=== PATIENT | male | born 1935 | race Caucasian/White ===

== ENCOUNTER 2018-05-04 04:43 | Inpatient (IN) ==
[2018-05-04] MEDS ORDERED: Naloxone 0.4 MG/ML INJ IVP PRN (07:09)
[2018-05-04 07:38] LABS: Basophils % 0.3 %; Eosinophils # 0.2 K/mcL (0.0-0.6); Eosinophils % 1.5 %; Hematocrit 41.1 % (37.5-50.1); Hemoglobin 13.4 g/dL (12.9-16.9); Immature Granulocytes % 1.1 % (0-4); Lymphocytes # 1.5 K/mcL (0.6-4.6); Lymphocytes % 11.2 %; Mean Corpuscular HGB Conc 32.6 g/dL (31.6-35.5); Mean Corpuscular Volume 91.9 fL (83.0-100.0); Mean Platelet Volume 8.3 fL (9.4-12.4); Monocytes % 7.1 %; Neutrophils # 10.7 K/mcL (1.6-8.9); Platelet Count 306 K/mcL (140-400); Red Blood Count 4.47 M/mcL (4.19-5.50); Red Cell Distribution Width 12.7 % (11.5-14.5); Segmented Neutrophils % 78.8 %
[2018-05-04 07:58] LABS: Alanine Aminotransferase 20 Units/L (7-52); Albumin 4.2 g/dL (3.5-5.7); Albumin/Globulin Ratio 1.6 (1.1-2.2); Alkaline Phosphatase 59 Units/L (34-104); Aspartate Amino Transferase 28 Units/L (13-39); BUN/Creatinine Ratio 18 (6-26); Bilirubin,Total 0.6 mg/dL (0.3-1.0); Blood Urea Nitrogen 16 mg/dL (8-23); Calcium 9.5 mg/dL (8.6-10.3); Carbon Dioxide 24 mEq/L (23-29); Chloride 102 mEq/L (98-107); Globulin 2.6 g/dL (2.4-3.5); Glucose 112 mg/dL (70-105); Osmolality,Calculated 282 (280-300); Phosphorous 3.3 mg/dL (2.7-4.5); Potassium 4.3 mEq/L (3.5-5.1); Sodium 135 mEq/L (136-145); Total Protein 6.8 g/dL (6.4-8.9); eGFR For Non-African Americans > 60 (> 60)
--- NOTE | 2018-05-04 08:18 | Internal Med History&Physical ---
Date of Encounter: 05/04/18 Time of Encounter: 07:16 Internal Medicine - H&P: HPI Chief complaint: Hematuria Admitted From: Home Plans for Post Hospital Care: Home History of present illness: Mr. Terrazas is a 83 year old male with history of type 2 diabetes and recent TURP procedure on 04/[address] [facility] presented to the [facility] emergency department with hematuria. Patient reported that he had a TURP procedure performed on 04/19 and was discharged home with a Chow catheter which was removed 6 days later with the urology team. He was found to have a urinary tract infection and was started on Bactrim which was later changed after urine cultures resulted on 04/27 but he cannot recall the new antibiotic but does report that he felt that prescription the day before admission. He reports that he was doing well until Thursday 2 days before admission he fell after his feet got tangled in his pants and hit his right shoulder and right hip on the floor, subsequently he developed back pain and blood in his urine. At first his urine was blood-tinged however on the day of admission he saw smith blood in his urine along with clots so he decided to go to [facility] emergency department for further evaluation. He cannot recall alleviating or aggravating factors. He does however report that he continued to have frequency and difficulty initiating his urine once he started to notice blood mixed with his urine. While at [facility] ED Chow was inserted and CBI was initiated and urology was consulted and was recommended for him to be transferred to [facility] for further evaluation and management CT abdomen and pelvis performed at [facility] was negative for any retroperitoneal bleeding, full report below Currently he denies fever, chills, chest pain, palpitations, shortness of breath, nausea, vomiting, diarrhea, syncope, loss of consciousness cause, headache, back pain. CT abdomen and pelvis with contrast on 05/04 IMPRESSION: 1. Small amount of hemorrhage is seen within the prostate gland, likely from recent procedure. 2. Right posterior bladder wall diverticulum. There is focal amount of hemorrhage noted within the diverticulum with edema/inflammation. Findings could be postsurgical or related to infection. Neoplastic process cannot be entirely excluded. Correlate with cystoscopy and urinalysis. 3. Infrarenal abdominal aortic aneurysm measuring 3.0 cm. Please see recommendations below. 4. 1.1 cm pancreatic tail cystic lesion. Please see recommendations below. 5. Enlarged prostate gland with findings consistent with bladder outlet obstruction. Past Med Surg Social Fam HX - Past Medical History Medical history: arthritis, diabetes, hyperlipidemia Psychiatric history: no psych history - Past Surgical History Surgical History: appendectomy - Social History Smoking Status: Former smoker Smokeless Tobacco Status: No Alcohol use: none Drug use: none - Family History Father Family Member Ethnicity: Non- Living Status: Hx Family Neurologic Disorders: Yes (Stroke) Internal Medicine - H&P: Meds Calcium Carbonate/Vitamin D3 [Calcium 500 + Vit D Caplet] 1 tab PO DAILY 04/19/18 [History] Cholecalciferol (D-3) [Vitamin D] 1,000 unit PO DAILY 04/19/18 [History] Cyanocobalamin (Vitamin B-12) [Vitamin B-12] 1,000 mcg PO DAILY 04/19/18 [History] Ibuprofen [Motrin Ib] 200 mg PO Q6H PRN 04/19/18 [History] Metformin HCl [Metformin HCl ER] 2,000 mg PO QPM 04/19/18 [History] Niacin 1,000 mg PO DAILY 04/19/18 [History] Saw [place] Fruit [Saw [place]] 450 mg PO BID 04/19/18 [History] Cefdinir [Omnicef] 300 mg PO BID 05/04/18 [History] Allergy/AdvReac Type Severity Reaction Status Date / Time ciprofloxacin [From Cipro] Allergy Rash Verified 04/19/18 06:34 aspirin AdvReac Nose Bleed Verified 04/19/18 06:34 Vgollpx-Rua-Fpl Reductase AdvReac Muscle Pain Verified 04/19/18 06:34 Inhibitor [Statins] All Systems PM: review of systems was performed and is negative for pertinent findings except as documented above in the HPI. - Constitutional Exam: General: Patient is alert, oriented, no acute distress, Head: atraumatic, normocephalic, Eye: normal appearance, PERRL, no scleral icterus, no conjunctival injection ENT: mucous membranes moist, normal external ear exam Neck: normal inspection, trachea midline, full ROM, no carotid bruits Chest: normal inspection, symmetric chest rise Respiratory: Good respiratory effort. Bilateral breath sounds are clear without wheezing, crackles, or rhonchi. Cardiovascular: Regular rate and rhythm. s1 and s2 No clicks, rubs, gallops, or murmors. Abdomen: Bowel sounds present normoactive x-4 quadrants. Abdomen is soft, nondistended. no Epigastric tenderness. No guarding or rebound. No organomegaly noted, obese musculoskeletal: Spontaneously moving all extremities. no edema, no calf tenderness Skin: warm, dry, intact. Neuro: Alert and oriented x4. Sensation light touch intact. Cranial nerves 2- 12 is intact. Not aphasic, rapid hand movements intact, bbtofk-[id number] intact, Psych: Patient's affect is normal catheter draining blood stained urine Internal Med - H&P Results - Labs CBC & Chem 7: 05/04/18 07:25 05/04/18 07:25 Labs: Short CBC 05/04/18 Range/Units 07:25 WBC 13.6 H (4.3-11.1) K/mcL Hgb 13.4 (12.9-16.9) g/dL Hct 41.1 (37.5-50.1) % Plt Count 306 (140-400) K/mcL Neutrophils # 10.7 H (1.6-8.9) K/mcL BMP 05/04/18 07:25 Sodium 135 L Potassium 4.3 Chloride 102 Carbon Dioxide 24 BUN 16 Creatinine 0.88 Glucose 112 H Calcium 9.5 Liver Function 05/04/18 Range/Units 07:25 Total Bilirubin 0.6 (0.3-1.0) mg/dL AST 28 (13-39) Units/L ALT 20 (7-52) Units/L Alkaline Phosphatase 59 (34-104) Units/L Albumin 4.2 (3.5-5.7) g/dL - EKG Data -: EKG Interpreted by Myself (SINUS RHYTHM, low voltage QRS in precordial leads) - EKG Data Prior EKG available for review: no - Assessment and plan (1) Hematuria Current Visit: Yes Status: Acute Assessment and plan: most likely secondary to There is focal amount of hemorrhage noted within the diverticulum with edema/inflammation and Small amount of hemorrhage is seen within the prostate gland Cardiac monitoring as he is actively bleeding on saw palmetto at home- was told risks associated with medication CBI initiated Avoid anticoagulations, antiplatelets or NSAIDs Monitor renal functions We will follow CBC every 8 hours Type and screen stat Urology consulted will follow recommendations (2) Diverticulum of bladder Current Visit: Yes Status: Acute Assessment and plan: Urology was consulted- Follow urology recommendations CBI initiated Nothing by mouth for possible procedure today Gentle hydrationwatch for overload CT abdomen and pelvis performed at [facility] on 05/04 1. Small amount of hemorrhage is seen within the prostate gland, likely from recent procedure. 2. Right posterior bladder wall diverticulum. There is focal amount of hemorrhage noted within the diverticulum with edema/inflammation. Findings could be postsurgical or related to infection. Neoplastic process cannot be entirely excluded. Correlate with cystoscopy and urinalysis. 3. Infrarenal abdominal aortic aneurysm measuring 3.0 cm. Please see recommendations below. 4. 1.1 cm pancreatic tail cystic lesion. Please see recommendations below. 5. Enlarged prostate gland with findings consistent with bladder outlet obstruction. (3) Bladder outlet obstruction Current Visit: Yes Status: Acute Assessment and plan: Chow inserted at [facility] Continue to monitor intake and output Urology consulted will follow recommendations (4) Complicated urinary tract infection Current Visit: Yes Status: Acute Assessment and plan: Urine cultures from 04/28 growing Proteus pansensitive We will start ceftriaxone Follow new urine cultures and de-escalate as per cultures (5) S/P TURP (status post transurethral resection of prostate) Current Visit: Yes Status: Acute Assessment and plan: He is status post TURP on 04/19 Urology consulted and on board will follow recommendations (6) AAA (abdominal aortic aneurysm) Current Visit: Yes Status: Acute Assessment and plan: 3.0 cm AAA Radiology Recommend follow-up every 3 years. Qualifiers: Presence of rupture: without rupture Qualified Code(s): I71.4 - Abdominal aortic aneurysm, without rupture (7) Pancreatic lesion Current Visit: Yes Status: Acute Assessment and plan: Incidentally found on CT abdomen and pelvis As per radiology recommendations:< 2 cm: Single follow-up in 1 yr (MR ricky giraldo) *Stable: Benign, no further follow-up *Growth: As below based upon size (8) DVT prophylaxis Current Visit: Yes Status: Acute Assessment and plan: SCDs - Time Spent With Patient Total time spent is greater than 50% in coordination of care (as documented) at patient's floor/unit and/or counseling patient:
[2018-05-04] MEDS: 0.9 % Sodium Chloride 1,000 ML IVC SCH (08:43)
[2018-05-04] MEDS ORDERED: Cyanocobalamin (B-12) 1,000 MCG TABLET PO SCH (09:00)
[2018-05-04] MEDS ORDERED: Niacin (24 HR) 500 MG TAB.ER.24H PO SCH (09:00)
[2018-05-04] MEDS: cefTRIAXone 2,000 MG in Water for inj. (sterile) 20 ML 20 ML IVPB SCH (09:01)
[2018-05-04] MEDS: Cholecalciferol (D-3) 1,000 UNIT TABLET PO SCH (09:01)
--- NOTE | 2018-05-04 09:20 | Urology - Consult Note ---
<Bria Higginbotham N - Last Filed: 05/04/18 09:18> Date of Encounter: 05/04/18 Time of Encounter: 09:18 - Assessment and Plan (1) Hematuria Current Visit: Yes Status: Acute Assessment and plan: Patient is an 83-year-old male who presents the history of gross hematuria following a urinary tract infection and fall at home. The patient is 2 weeks status post TURP with Dr. Bobo. We will continue to monitor patient on CBI and hand irrigate at bedside as needed. I discussed with the patient we will attempt to manage him conservatively, but if bleeding persists or acutely worsens, we may consider fulguration in the operating room. Patient agrees and verbalizes understanding. We will follow H&H and closely monitor urine. Qualifiers: Hematuria type: gross Qualified Code(s): R31.0 - Gross hematuria (2) S/P TURP (status post transurethral resection of prostate) Current Visit: Yes Status: Acute Urology CN:HPI Consult date: 05/04/18 Reason for consult Urology: Gross Hematuria History of present illness: Patient is an 83-year-old male who presents with gross hematuria. Patient underwent a TURP procedure on 04/19/[address] Bobo. There were no surgical complications, and the patient was discharged home with a Chow catheter indwelling for 6 days. The Chow catheter was removed in the outpatient urology clinic without difficulty. At that time, the patient was found to have urinary tract infection and was placed on Bactrim orally. Patient states his antibiotic was changed, but he is unsure what it was changed to. Patient states he fell 2 days ago while trying to get dressed and landed on the right side of his body experiencing right hip pain, right shoulder pain and lower back pain. Patient subsequently noticed a small amount of blood in the urine. This morning, the b leeding acutely worsened, his urine flow became obstructed by clots, and he presented to the emergency department for further evaluation. Patient was placed on continuous bladder irrigation, and urine is now transparent pink lemonade and draining into bedside bag. It is of note, the patient states he easily bleeds and bruises, and he is unable to take aspirin secondary to epistaxis. The patient has not undergone a work up for this and states he has always bled easily since childhood. The patient denies a known family history of blood disorders. Past Med Surg Social Fam HX - Past Medical History Medical history: arthritis, diabetes Psychiatric history: no psych history - Past Surgical History Surgical History: appendectomy - Social History Smoking Status: Former smoker Smokeless Tobacco Status: No Alcohol use: none Drug use: none - Family History Father Family Member Ethnicity: Non- Living Status: Age at : 87 Hx Family Cardiac Disorders: Yes Hx Family Neurologic Disorders: Yes (Stroke) Medications and Allergies Calcium Carbonate/Vitamin D3 [Calcium 500 + Vit D Caplet] 1 tab PO DAILY 04/19/18 [History] Cholecalciferol (D-3) [Vitamin D] 1,000 unit PO DAILY 04/19/18 [History] Cyanocobalamin (Vitamin B-12) [Vitamin B-12] 1,000 mcg PO DAILY 04/19/18 [History] Ibuprofen [Motrin Ib] 200 mg PO Q6H PRN 04/19/18 [History] Metformin HCl [Metformin HCl ER] 2,000 mg PO QPM 04/19/18 [History] Niacin 1,000 mg PO DAILY 04/19/18 [History] Saw [place] Fruit [Saw [place]] 450 mg PO BID 04/19/18 [History] Cefdinir [Omnicef] 300 mg PO BID 05/04/18 [History] Allergy/AdvReac Type Severity Reaction Status Date / Time ciprofloxacin [From Cipro] Allergy Rash Verified 04/19/18 06:34 aspirin AdvReac Nose Bleed Verified 04/19/18 06:34 [id number]-Aqd Reductase AdvReac Muscle Pain Verified 04/19/18 06:34 Inhibitor [Statins] Review of Systems - Constitutional no chills, no fatigue, no fever(s) - EENT Nose, mouth and throat: no dizziness, no headache(s), no throat swelling - Cardiovascular no chest pain, no diaphoresis, no dyspnea - Respiratory no cough, no dyspnea - Gastrointestinal no abdominal pain, no change in bowel habits, no nausea, no vomiting - Genitourinary change in urinary stream, difficulty urinating, hematuria, urinary frequency, urinary hesitancy, no dysuria, no urinary incontinence, no urinary urgency - Musculoskeletal back pain, no muscle weakness - Integumentary no lesions, no rash - Neurological no confusion, no sensory deficit, no syncope - Psychiatric no anxiety, no confusion - Hematologic/Lymphatic easy bleeding, easy bruising - Allergic/Immunologic no throat swelling, no wheezing Exam - General physical appearance Present: well developed, well nourished, no distress, no pain - Eyes Present: PERRL, normal ocular movement - ENT Present: normal nares, normal mucosa, no hearing loss, no congestion - Neck Present: no masses, trachea midline - Respiratory Present: normal respiratory effort - Cardiovascular Cardiovascular exam IM: RRR - Abdomen Abdomen: Present: soft, non tender - Genitourinary other (urine is transparent pink lemonade in tubing on CBI) - Integumentary Present: no rash, no abnormal pigmentation - Neurologic Present: normal coordination - Musculoskeletal Present: other (normal posture ) Urology Results - Labs 05/04/18 07:25 05/04/18 07:25 Abnormal lab results WBC 13.6 K/mcL (4.3-11.1) H 05/04/18 07:25 MPV 8.3 fL (9.4-12.4) L 05/04/18 07:25 Neutrophils # 10.7 K/mcL (1.6-8.9) H 05/04/18 07:25 Sodium 135 mEq/L (136-145) L 05/04/18 07:25 Glucose 112 mg/dL (70-105) H 05/04/18 07:25 Diabetes panel 05/04/18 Range/Units 07:25 Sodium 135 L (136-145) mEq/L Potassium 4.3 (3.5-5.1) mEq/L Chloride 102 (98-107) mEq/L Carbon Dioxide 24 (23-29) mEq/L BUN 16 (8-23) mg/dL Creatinine 0.88 (0.70-1.30) mg/dL Glucose 112 H (70-105) mg/dL Calcium 9.5 (8.6-10.3) mg/dL AST 28 (13-39) Units/L ALT 20 (7-52) Units/L Alkaline Phosphatase 59 (34-104) Units/L Albumin 4.2 (3.5-5.7) g/dL Calcium panel 05/04/18 Range/Units 07:25 Calcium 9.5 (8.6-10.3) mg/dL Phosphorus 3.3 (2.7-4.5) mg/dL Albumin 4.2 (3.5-5.7) g/dL Pituitary panel 05/04/18 Range/Units 07:25 Sodium 135 L (136-145) mEq/L Potassium 4.3 (3.5-5.1) mEq/L Chloride 102 (98-107) mEq/L Carbon Dioxide 24 (23-29) mEq/L BUN 16 (8-23) mg/dL Creatinine 0.88 (0.70-1.30) mg/dL Glucose 112 H (70-105) mg/dL Calcium 9.5 (8.6-10.3) mg/dL Adrenal panel 05/04/18 Range/Units 07:25 Sodium 135 L (136-145) mEq/L Potassium 4.3 (3.5-5.1) mEq/L Chloride 102 (98-107) mEq/L Carbon Dioxide 24 (23-29) mEq/L BUN 16 (8-23) mg/dL Creatinine 0.88 (0.70-1.30) mg/dL Glucose 112 H (70-105) mg/dL Calcium 9.5 (8.6-10.3) mg/dL Total Bilirubin 0.6 (0.3-1.0) mg/dL AST 28 (13-39) Units/L ALT 20 (7-52) Units/L Alkaline Phosphatase 59 (34-104) Units/L Albumin 4.2 (3.5-5.7) g/dL All other labs normal. - Imaging CT scan - abdomen: report reviewed, image reviewed CT scan - pelvis: report reviewed, image reviewed Consult Discharge Plan - Plan Referrals: Yomaira Rice MD [Primary Care Provider] - <Wing Olmstead - Last Filed: 05/04/18 16:52> Date of Encounter: 05/04/18 - Assessment and Plan (1) Hematuria Current Visit: Yes Status: Acute Assessment and plan: Patient seen and examined independently. Agree with assessment and plan of DAYSI Grajeda. Discussed options for management with patient. Plan: a.) CBI overnight b.) Traction tomorrow if unable to stop/minimize CBI c.) fulguration under anesthesia if options a and b are not effective over the next few days. Qualifiers: Hematuria type: gross Qualified Code(s): R31.0 - Gross hematuria Exam Initial Vital Signs Temp Pulse Resp BP Pulse Ox 98.0 F 63 15 153/78 97 05/04/18 10:13 05/04/18 10:13 05/04/18 10:13 05/04/18 10:13 05/04/18 10:13 Urology Results - Labs 05/04/18 14:10 05/04/18 07:25 Abnormal lab results WBC 12.8 K/mcL (4.3-11.1) H 05/04/18 14:10 MPV 8.3 fL (9.4-12.4) L 05/04/18 14:10 Neutrophils # 10.7 K/mcL (1.6-8.9) H 05/04/18 07:25 Sodium 135 mEq/L (136-145) L 05/04/18 07:25 Glucose 112 mg/dL (70-105) H 05/04/18 07:25 Ur Specimen Adequacy See below A 05/04/18 12:55 Urine Color Red (Yellow) A 05/04/18 12:55 Urine Clarity Cloudy (Clear) A 05/04/18 12:55 Urine Protein 30 mg/dL (Neg-Trace) H 05/04/18 12:55 Urine Blood Large (Negative) H 05/04/18 12:55 Ur Leukocyte Esterase Large (Negative) H 05/04/18 12:55 Diabetes panel 05/04/18 Range/Units 07:25 Sodium 135 L (136-145) mEq/L Potassium 4.3 (3.5-5.1) mEq/L Chloride 102 (98-107) mEq/L Carbon Dioxide 24 (23-29) mEq/L BUN 16 (8-23) mg/dL Creatinine 0.88 (0.70-1.30) mg/dL Glucose 112 H (70-105) mg/dL Calcium 9.5 (8.6-10.3) mg/dL AST 28 (13-39) Units/L ALT 20 (7-52) Units/L Alkaline Phosphatase 59 (34-104) Units/L Albumin 4.2 (3.5-5.7) g/dL Calcium panel 05/04/18 Range/Units 07:25 Calcium 9.5 (8.6-10.3) mg/dL Phosphorus 3.3 (2.7-4.5) mg/dL Albumin 4.2 (3.5-5.7) g/dL Pituitary panel 05/04/18 Range/Units 07:25 Sodium 135 L (136-145) mEq/L Potassium 4.3 (3.5-5.1) mEq/L Chloride 102 (98-107) mEq/L Carbon Dioxide 24 (23-29) mEq/L BUN 16 (8-23) mg/dL Creatinine 0.88 (0.70-1.30) mg/dL Glucose 112 H (70-105) mg/dL Calcium 9.5 (8.6-10.3) mg/dL Adrenal panel 05/04/18 Range/Units 07:25 Sodium 135 L (136-145) mEq/L Potassium 4.3 (3.5-5.1) mEq/L Chloride 102 (98-107) mEq/L Carbon Dioxide 24 (23-29) mEq/L BUN 16 (8-23) mg/dL Creatinine 0.88 (0.70-1.30) mg/dL Glucose 112 H (70-105) mg/dL Calcium 9.5 (8.6-10.3) mg/dL Total Bilirubin 0.6 (0.3-1.0) mg/dL AST 28 (13-39) Units/L ALT 20 (7-52) Units/L Alkaline Phosphatase 59 (34-104) Units/L Albumin 4.2 (3.5-5.7) g/dL All other labs normal.
[2018-05-04 13:19] LABS: Bilirubin,Urine Negative (Negative); Blood,Urine Large (Negative); Glucose,Urine (UA) Normal (Normal); Ketones,Urine Negative (Negative); Leukocyte Esterase,Urine Large (Negative); Nitrite,Urine Negative (Negative); Protein,Urine 30 mg/dL (Neg-Trace); Urobilinogen,Urine Normal (Normal)
[2018-05-04 13:21] LABS: Clarity,Urine Cloudy (Clear); Color,Urine Red (Yellow)
[2018-05-04 14:26] LABS: Hematocrit 41.2 % (37.5-50.1); Hemoglobin 13.3 g/dL (12.9-16.9); Mean Corpuscular HGB Conc 32.3 g/dL (31.6-35.5); Mean Corpuscular Volume 92.8 fL (83.0-100.0); Mean Platelet Volume 8.3 fL (9.4-12.4); Platelet Count 335 K/mcL (140-400); Red Blood Count 4.44 M/mcL (4.19-5.50); Red Cell Distribution Width 12.8 % (11.5-14.5)
[2018-05-04 22:00] LABS: Hematocrit 40.7 % (37.5-50.1); Hemoglobin 13.2 g/dL (12.9-16.9); Mean Corpuscular HGB Conc 32.4 g/dL (31.6-35.5); Mean Corpuscular Hemoglobin 30.1 pg (28.0-33.3); Mean Corpuscular Volume 92.7 fL (83.0-100.0); Mean Platelet Volume 8.4 fL (9.4-12.4); Platelet Count 336 K/mcL (140-400); Red Blood Count 4.39 M/mcL (4.19-5.50); Red Cell Distribution Width 12.9 % (11.5-14.5)
[2018-05-05 04:14] LABS: Basophils % 0.3 %; Eosinophils # 0.3 K/mcL (0.0-0.6); Hemoglobin 12.7 g/dL (12.9-16.9); Immature Granulocytes % 0.9 % (0-4); Lymphocytes # 1.5 K/mcL (0.6-4.6); Lymphocytes % 13.6 %; Mean Corpuscular HGB Conc 31.8 g/dL (31.6-35.5); Mean Corpuscular Hemoglobin 29.6 pg (28.0-33.3); Mean Corpuscular Volume 93.2 fL (83.0-100.0); Mean Platelet Volume 8.3 fL (9.4-12.4); Monocytes # 0.9 K/mcL (0.0-1.3); Monocytes % 8.4 %; Platelet Count 335 K/mcL (140-400); Red Blood Count 4.29 M/mcL (4.19-5.50); Red Cell Distribution Width 12.7 % (11.5-14.5); Segmented Neutrophils % 73.8 %
[2018-05-05 04:32] LABS: Alanine Aminotransferase 17 Units/L (7-52); Albumin 3.5 g/dL (3.5-5.7); Albumin/Globulin Ratio 1.3 (1.1-2.2); Alkaline Phosphatase 54 Units/L (34-104); Aspartate Amino Transferase 19 Units/L (13-39); BUN/Creatinine Ratio 18 (6-26); Bilirubin,Total 0.5 mg/dL (0.3-1.0); Blood Urea Nitrogen 14 mg/dL (8-23); Calcium 8.9 mg/dL (8.6-10.3); Carbon Dioxide 26 mEq/L (23-29); Chloride 103 mEq/L (98-107); Globulin 2.7 g/dL (2.4-3.5); Glucose 120 mg/dL (70-105); Osmolality,Calculated 286 (280-300); Potassium 4.3 mEq/L (3.5-5.1); Sodium 137 mEq/L (136-145); Total Protein 6.2 g/dL (6.4-8.9); eGFR For Non-African Americans > 60 (> 60)
[2018-05-05] MEDS: Cholecalciferol (D-3) 1,000 UNIT TABLET PO SCH (08:58)
[2018-05-05] MEDS: Cyanocobalamin (B-12) 1,000 MCG TABLET PO SCH (08:58)
[2018-05-05] MEDS: cefTRIAXone 2,000 MG in Water for inj. (sterile) 20 ML 20 ML IVPB SCH (08:58)
[2018-05-05] MEDS: 0.9 % Sodium Chloride 1,000 ML IVC SCH (08:59)
[2018-05-05] MEDS ORDERED: Niacin (24 HR) 500 MG TAB.ER.24H PO SCH (09:00)
--- NOTE | 2018-05-05 09:25 | Urology Progress Note ---
<Bria Higginbotham N - Last Filed: 05/05/18 09:22> Date of Encounter: 05/05/18 Time of Encounter: 09:22 - Assessment and Plan (1) Hematuria Current Visit: Yes Status: Acute Assessment and plan: Patient is an 83-year-old male who presents with the history of gross hematuria following a urinary tract infection and fall. Patient is 2 weeks status post TURP. CBI appears to be clearing urine. I have slowed flow on CBI and notified nursing staff. If urine appears to be getting darker, I will perform hand clot evacuation at bedside. Patient is concerned, as he does not wish to undergo another bedside clot evacuation. Qualifiers: Hematuria type: gross Qualified Code(s): R31.0 - Gross hematuria (2) S/P TURP (status post transurethral resection of prostate) Current Visit: Yes Status: Acute Assessment and plan: Patient is 2 weeks status post TURP in currently has an indwelling Chow catheter with continuous bladder irrigation. We will continue to monitor urine. If urine fails to clear on CBI, fulguration will be considered. Progress Note Subjective: no new complaints Narrative: Patient seen and examined sitting upright in chair eating breakfast in no apparent distress. Patient states he underwent clot evacuation at bedside with the nursing staff yesterday evening, and several large clots were evacuated. Patient has been placed on moderate to high flow continuous bladder irrigation, and urine appears clear without sediment this morning. Objective Initial Vital Signs Temp Pulse Resp BP Pulse Ox 98.0 F 63 15 153/78 97 05/04/18 10:13 05/04/18 10:13 05/04/18 10:13 05/04/18 10:13 05/04/18 10:13 - General physical appearance Present: well developed, no distress, no pain - Respiratory Present: normal expansion, normal respiratory effort - Abdomen Present: soft, non tender - Genitourinary Urine Appearance: Present: Clear - Integumentary Present: no rash, no abnormal pigmentation - Musculoskeletal Present: normal posture - Psychiatric Present: oriented to time, oriented to person, oriented to place, speech is normal, memory intact - Labs 05/05/18 03:57 05/05/18 03:57 Diabetes panel 05/05/18 Range/Units 03:57 Sodium 137 (136-145) mEq/L Potassium 4.3 (3.5-5.1) mEq/L Chloride 103 (98-107) mEq/L Carbon Dioxide 26 (23-29) mEq/L BUN 14 (8-23) mg/dL Creatinine 0.76 (0.70-1.30) mg/dL Glucose 120 H (70-105) mg/dL Calcium 8.9 (8.6-10.3) mg/dL AST 19 (13-39) Units/L ALT 17 (7-52) Units/L Alkaline Phosphatase 54 (34-104) Units/L Albumin 3.5 (3.5-5.7) g/dL Calcium panel 05/05/18 Range/Units 03:57 Calcium 8.9 (8.6-10.3) mg/dL Albumin 3.5 (3.5-5.7) g/dL Pituitary panel 05/05/18 Range/Units 03:57 Sodium 137 (136-145) mEq/L Potassium 4.3 (3.5-5.1) mEq/L Chloride 103 (98-107) mEq/L Carbon Dioxide 26 (23-29) mEq/L BUN 14 (8-23) mg/dL Creatinine 0.76 (0.70-1.30) mg/dL Glucose 120 H (70-105) mg/dL Calcium 8.9 (8.6-10.3) mg/dL Adrenal panel 05/05/18 Range/Units 03:57 Sodium 137 (136-145) mEq/L Potassium 4.3 (3.5-5.1) mEq/L Chloride 103 (98-107) mEq/L Carbon Dioxide 26 (23-29) mEq/L BUN 14 (8-23) mg/dL Creatinine 0.76 (0.70-1.30) mg/dL Glucose 120 H (70-105) mg/dL Calcium 8.9 (8.6-10.3) mg/dL Total Bilirubin 0.5 (0.3-1.0) mg/dL AST 19 (13-39) Units/L ALT 17 (7-52) Units/L Alkaline Phosphatase 54 (34-104) Units/L Albumin 3.5 (3.5-5.7) g/dL Consult Discharge Plan - Plan Referrals: Yomaira Rice MD [Primary Care Provider] - <Wing Olmstead - Last Filed: 05/06/18 08:36> Date of Encounter: 05/05/18 - Assessment and Plan (1) Hematuria Current Visit: Yes Status: Acute Assessment and plan: Seen and examined independently. Irrigated manually at bedside. Agree with plan of DAYSI Higginbotham Qualifiers: Hematuria type: gross Qualified Code(s): R31.0 - Gross hematuria Objective Initial Vital Signs Temp Pulse Resp BP Pulse Ox 98.0 F 63 15 153/78 97 05/04/18 10:13 05/04/18 10:13 05/04/18 10:13 05/04/18 10:13 05/04/18 10:13 - Labs 05/05/18 03:57 05/05/18 03:57
[2018-05-05] MEDS: *HR* OxyCODONE/APAP 5/325 TABLET PO PRN ×2 (10:36→22:30)
[2018-05-05 15:10] LABS: INR 1.2
--- NOTE | 2018-05-05 17:32 | Internal Med Progress Note ---
Hospitalist Progress Note - Encounter Date of Encounter: 05/05/18 Time of Encounter: 17:32 - Subjective Interval History: Pt denies fever or chills, N/V or diarrhea. He denies CP or SOB. He does report some back pain. States he fell a few days ago. He prefers to request pain medication as needed. Sitting up in chair as he cannot tolerate laying in bed. He states urine appearing less bloody and denies urinary frequency, urgency, or dysuria. - Exam Vitals: Temp Pulse Resp BP Pulse Ox 97.7 F 69 14 119/68 96 05/05/18 14:14 05/05/18 14:14 05/05/18 14:14 05/05/18 14:14 05/05/18 14:14 Exam: General: Patient is alert, oriented, no acute distress, Head: atraumatic, normocephalic, Eye: normal appearance, PERRL, no scleral icterus, no conjunctival injection ENT: mucous membranes moist, normal external ear exam Neck: normal inspection, trachea midline, full ROM, no carotid bruits Chest: normal inspection, symmetric chest rise Respiratory: Good respiratory effort. Bilateral breath sounds are clear without wheezing, crackles, or rhonchi. Cardiovascular: Regular rate and rhythm. s1 and s2 No clicks, rubs, gallops, or murmors. Abdomen: Bowel sounds present normoactive x-4 quadrants. Abdomen is soft, nondistended. no Epigastric tenderness. No guarding or rebound. No organomegaly noted, obese musculoskeletal: Spontaneously moving all extremities. no edema, no calf tenderness Skin: warm, dry, intact. Neuro: Alert and oriented x4. Sensation light touch intact. Cranial nerves 2- 12 is intact. Not aphasic, rapid hand movements intact, [id number] intact, Psych: Patient's affect is normal catheter draining blood stained urine - Assessment and Plan (1) Bladder outlet obstruction Current Visit: Yes Status: Acute Assessment and Plan: Chow inserted at [facility] Continue to monitor intake and output Urology consulted and will continue to follow recommendations Pt is s/p TURP 2 weeks ago. He had hand clot evacuation done at bedside by urology on night of 05/04/2018. Continue irrigation orders per urology (2) Complicated urinary tract infection Current Visit: Yes Status: Acute Assessment and Plan: Urine cultures from 04/28 resulted 05/01/2018 growing Proteus blas sensitive Started on ceftriaxone with plans to DC on omnicef to complete antibiotic course. (3) Hematuria Current Visit: Yes Status: Acute Assessment and Plan: Pt on Coumadin. Will cardiac monitoring on topher luo at home- was told risks associated with medication CBI initiated Avoid anticoagulations, antiplatelets or NSAIDs or now. Plan to resume Coumadin once bleeding improves/resolves. Monitor renal functions Type and screened on admission. Hgb stable at 12.7 Urology consulted will follow recommendations CT abd and pelvis 05/04/2018 CT/CT abd pelvis w iv no oral IMPRESSION: 1. Small amount of hemorrhage is seen within the prostate gland, likely from recent procedure. 2. Right posterior bladder wall diverticulum. There is focal amount of hemorrhage noted within the diverticulum with edema/inflammation. Findings could be postsurgical or related to infection. Neoplastic process cannot be entirely excluded. Correlate with cystoscopy and urinalysis. 3. Infrarenal abdominal aortic aneurysm measuring 3.0 cm. Please see recommendations below. 4. 1.1 cm pancreatic tail cystic lesion. Please see recommendations below. 5. Enlarged prostate gland with findings consistent with bladder outlet obstruction. (4) S/P TURP (status post transurethral resection of prostate) Current Visit: Yes Status: Acute Assessment and Plan: He is status post TURP on 04/19 Urology consulted and on board will follow recommendations (5) Diverticulum of bladder Current Visit: Yes Status: Acute Assessment and Plan: Urology aware CBI initiated CT abdomen and pelvis performed at [place] on 05/04 1. Small amount of hemorrhage is seen within the prostate gland, likely from recent procedure. 2. Right posterior bladder wall diverticulum. There is focal amount of hemorrhage noted within the diverticulum with edema/inflammation. Findings could be postsurgical or related to infection. Neoplastic process cannot be entirely excluded. Correlate with cystoscopy and urinalysis. 3. Infrarenal abdominal aortic aneurysm measuring 3.0 cm. Please see recommendations below. 4. 1.1 cm pancreatic tail cystic lesion. Please see recommendations below. 5. Enlarged prostate gland with findings consistent with bladder outlet obstruction. (6) AAA (abdominal aortic aneurysm) Current Visit: Yes Status: Acute Assessment and Plan: 3.0 cm AAA Radiology Recommend follow-up every 3 years. 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 Terrazas is a 83 year old male with history of type 2 diabetes and recent TURP procedure on 04/19 at [facility] presented to the [place] emergency department with hematuria. Patient reported that he had a TURP procedure performed on 04/19 and was discharged home with a Chow catheter which was removed 6 days later with the urology team. He was found to have a urinary tract infection and was started on Bactrim which was later changed after urine cultures resulted on 04/27 but he cannot recall the new antibiotic but does report that he felt that prescription the day before admission. He reports that he was doing well until Thursday 2 days before admission he fell after his feet got tangled in his pants and hit his right shoulder and right hip on the floor, subsequently he developed back pain and blood in his urine. At first his urine was blood-tinged however on the day of admission he saw smith blood in his urine along with clots so he decided to go to [place] emergency department for further evaluation. He cannot recall alleviating or aggravating factors. He does however report that he continued to have frequency and difficulty initiating his urine once he started to notice blood mixed with his urine. While at [place] ED Chow was inserted and CBI was initiated and urology was consulted and was recommended for him to be transferred to [facility] for further evaluation and management CT abdomen and pelvis performed at [facility] was negative for any retroperitoneal bleeding, full report below Currently he denies fever, chills, chest pain, palpitations, shortness of breath, nausea, vomiting, diarrhea, syncope, loss of consciousness cause, headache, back pain. - Time Spent with Patient Total time spent is greater than 50% in coordination of care (as documented) at patient's floor/unit and/or counseling patient: less than 15 minutes Plan of Care Discussed with: patient Internal Medicine: Result - Labs CBC & Chem 7: 05/05/18 03:57 05/05/18 03:57 Labs: Short CBC 05/04/18 05/05/18 Range/Units 21:46 03:57 WBC 13.4 H 10.8 (4.3-11.1) K/mcL Hgb 13.2 12.7 L (12.9-16.9) g/dL Hct 40.7 40.0 (37.5-50.1) % Plt Count 336 335 (140-400) K/mcL Neutrophils # 8.0 (1.6-8.9) K/mcL BMP 05/05/18 03:57 Sodium 137 Potassium 4.3 Chloride 103 Carbon Dioxide 26 BUN 14 Creatinine 0.76 Glucose 120 H Calcium 8.9 Liver Function 05/05/18 Range/Units 03:57 Total Bilirubin 0.5 (0.3-1.0) mg/dL AST 19 (13-39) Units/L ALT 17 (7-52) Units/L Alkaline Phosphatase 54 (34-104) Units/L Albumin 3.5 (3.5-5.7) g/dL - ABG Interpretation ABG results: PT/INR, D-dimer PT 13.0 Seconds (9.4-12.1) H 05/05/18 14:47 Consult Discharge Plan - Plan Referrals: Yomaira Rice MD [Primary Care Provider] - (3) Hematuria Qualifiers: Hematuria type: gross Qualified Code(s): R31.0 - Gross hematuria (6) AAA (abdominal aortic aneurysm) Qualifiers: Presence of rupture: without rupture Qualified Code(s): I71.4 - Abdominal aortic aneurysm, without rupture
[2018-05-06] MEDS: *HR* OxyCODONE/APAP 5/325 TABLET PO PRN ×2 (06:19→15:01)
[2018-05-06] MEDS: Cyanocobalamin (B-12) 1,000 MCG TABLET PO SCH (07:51)
[2018-05-06] MEDS: cefTRIAXone 2,000 MG in Water for inj. (sterile) 20 ML 20 ML IVPB SCH (07:51)
[2018-05-06] MEDS: Cholecalciferol (D-3) 1,000 UNIT TABLET PO SCH (07:51)
--- NOTE | 2018-05-06 10:30 | Urology Progress Note ---
Date of Encounter: 05/06/18 Time of Encounter: 09:45 - Assessment and Plan (1) Hematuria Current Visit: Yes Status: Acute Assessment and plan: Patient is an 83-year-old male who presents with the history of gross hematuria. Hematuria appears to be resolving. I titrated CBI even slower. We will plan to start Colace twice daily, as patient feels bleeding will return if he strains. I recommend to continue titration to urine color, and hopefully, discontinue CBI for observation before discharge is considered. Qualifiers: Hematuria type: gross Qualified Code(s): R31.0 - Gross hematuria (2) S/P TURP (status post transurethral resection of prostate) Current Visit: Yes Status: Acute Progress Note Subjective: no new complaints Narrative: Patient seen and examined sitting upright in bed in no apparent distress. Patient is tolerating normal diet. Patient has not passed a bowel movement since being admitted. Urine is clear and sufficiently draining into bedside bag. CBI is on very slow flow. Patient denies abdominal pain, nausea, vomiting, fever, chills. Objective Initial Vital Signs Temp Pulse Resp BP Pulse Ox 98.0 F 63 15 153/78 97 05/04/18 10:13 05/04/18 10:13 05/04/18 10:13 05/04/18 10:13 05/04/18 10:13 - General physical appearance Present: well developed, well nourished, no distress, no pain - Respiratory Present: normal expansion, normal respiratory effort - Abdomen Present: soft, non tender - Genitourinary Urine Appearance: Present: Clear - Integumentary Present: no rash, no abnormal pigmentation - Musculoskeletal Present: normal posture - Psychiatric Present: oriented to time, oriented to person, oriented to place, speech is normal, memory intact - Labs 05/05/18 03:57 05/05/18 03:57 Consult Discharge Plan - Plan Referrals: Yomaira Rice MD [Primary Care Provider] -
--- NOTE | 2018-05-06 17:42 | Internal Med Progress Note ---
Hospitalist Progress Note - Encounter Date of Encounter: 05/06/18 Time of Encounter: 17:34 - Subjective Interval History: Pt denies fever or chills, N/V or diarrhea. He denies CP or SOB. He states back pain improving. States he fell a few days ago. He prefers to request pain medication as needed. Sitting up in chair as he cannot tolerate laying in bed. Urine clearer and denies urinary frequency, urgency, or dysuria. - Exam Vitals: Temp Pulse Resp BP Pulse Ox 97.8 F 97 14 152/81 96 05/06/18 15:29 05/06/18 15:29 05/06/18 15:29 05/06/18 15:29 05/06/18 15:29 Exam: General: Patient is alert, oriented, no acute distress, Head: atraumatic, normocephalic, Eye: normal appearance, PERRL, no scleral icterus, no conjunctival injection ENT: mucous membranes moist, normal external ear exam Neck: normal inspection, trachea midline, full ROM, no carotid bruits Chest: normal inspection, symmetric chest rise Respiratory: Good respiratory effort. Bilateral breath sounds are clear without wheezing, crackles, or rhonchi. Cardiovascular: Regular rate and rhythm. s1 and s2 No clicks, rubs, gallops, or murmors. Abdomen: Bowel sounds present normoactive x-4 quadrants. Abdomen is soft, nondistended. no Epigastric tenderness. No guarding or rebound. No organomegaly noted, obese musculoskeletal: Spontaneously moving all extremities. no edema, no calf tenderness Skin: warm, dry, intact. Neuro: Alert and oriented x4. Sensation light touch intact. Cranial nerves 2- 12 is intact. Not aphasic, rapid hand movements intact, [id number] intact, Psych: Patient's affect is normal catheter draining blood stained urine - Assessment and Plan (1) Bladder outlet obstruction Current Visit: Yes Status: Acute Assessment and Plan: Chow inserted at [facility] Continue to monitor intake and output Urology consulted and will continue to follow recommendations Pt is s/p TURP 2 weeks ago. He had hand clot evacuation done at bedside by urology on night of 05/04/2018. Continue irrigation orders per urology (2) Complicated urinary tract infection Current Visit: Yes Status: Acute Assessment and Plan: Urine cultures from 04/28 resulted 05/01/2018 growing Proteus blas sensitive Started on ceftriaxone with plans to DC on omnicef to complete antibiotic course. (3) Hematuria Current Visit: Yes Status: Acute Assessment and Plan: Pt on Coumadin. [place] continue cardiac monitoring on saw palmetto at home- was told risks associated with medication CBI initiated and urine more clear Avoid anticoagulations, antiplatelets or NSAIDs or now. Plan to resume Coumadin once bleeding improves/resolves. Monitor renal functions Type and screened on admission. Hgb stable at 12.7 Urology consulted will follow recommendations CT abd and pelvis 05/04/2018 CT/CT abd pelvis w iv no oral IMPRESSION: 1. Small amount of hemorrhage is seen within the prostate gland, likely from recent procedure. 2. Right posterior bladder wall diverticulum. There is focal amount of hemorrhage noted within the diverticulum with edema/inflammation. Findings could be postsurgical or related to infection. Neoplastic process cannot be entirely excluded. Correlate with cystoscopy and urinalysis. 3. Infrarenal abdominal aortic aneurysm measuring 3.0 cm. Please see recommendations below. 4. 1.1 cm pancreatic tail cystic lesion. Please see recommendations below. 5. Enlarged prostate gland with findings consistent with bladder outlet obstruction. (4) S/P TURP (status post transurethral resection of prostate) Current Visit: Yes Status: Acute Assessment and Plan: He is status post TURP on 04/19 Urology consulted and on board will follow recommendations (5) Diverticulum of bladder Current Visit: Yes Status: Acute Assessment and Plan: Urology aware CBI initiated CT abdomen and pelvis performed at [place] on 05/04 1. Small amount of hemorrhage is seen within the prostate gland, likely from recent procedure. 2. Right posterior bladder wall diverticulum. There is focal amount of hemorrhage noted within the diverticulum with edema/inflammation. Findings could be postsurgical or related to infection. Neoplastic process cannot be entirely excluded. Correlate with cystoscopy and urinalysis. 3. Infrarenal abdominal aortic aneurysm measuring 3.0 cm. Please see recommendations below. 4. 1.1 cm pancreatic tail cystic lesion. Please see recommendations below. 5. Enlarged prostate gland with findings consistent with bladder outlet obstruction. (6) AAA (abdominal aortic aneurysm) Current Visit: Yes Status: Acute Assessment and Plan: 3.0 cm AAA Radiology Recommend follow-up every 3 years. (7) Pancreatic lesion Current Visit: Yes Status: Acute Assessment and Plan: Incidentally found on CT abdomen and pelvis As per radiology recommendations:< 2 cm: Single follow-up in 1 yr (MR mason) *Stable: Benign, no further follow-up *Growth: As below based upon size (8) Constipation Current Visit: Yes Status: Acute Assessment and Plan: Colace 100 mg BID. 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 Terrazas is a 83 year old male with history of type 2 diabetes and recent TURP procedure on 04/19 at [facility] presented to the [place] emergency department with hematuria. Patient reported that he had a TURP procedure performed on 04/19 and was discharged home with a Chow catheter which was removed 6 days later with the urology team. He was found to have a urinary tract infection and was started on Bactrim which was later changed after urine cultures resulted on 04/27 but he cannot recall the new antibiotic but does report that he felt that prescription the day before admission. He reports that he was doing well until Thursday 2 days before admission he fell after his feet got tangled in his pants and hit his right shoulder and right hip on the floor, subsequently he developed back pain and blood in his urine. At first his urine was blood-tinged however on the day of admission he saw smith blood in his urine along with clots so he decided to go to [place] emergency department for further evaluation. He cannot recall alleviating or aggravating factors. He does however report that he continued to have frequency and difficulty initi ating his urine once he started to notice blood mixed with his urine. While at [place] ED Chow was inserted and CBI was initiated and urology was consulted and was recommended for him to be transferred to [facility] for further evaluation and management CT abdomen and pelvis performed at [facility] was negative for any retroperitoneal bleeding, full report below Currently he denies fever, chills, chest pain, palpitations, shortness of breath, nausea, vomiting, diarrhea, syncope, loss of consciousness cause, headache, back pain. - Time Spent with Patient Total time spent is greater than 50% in coordination of care (as documented) at patient's floor/unit and/or counseling patient: less than 15 minutes Plan of Care Discussed with: patient Internal Medicine: Result - Labs CBC & Chem 7: 05/05/18 03:57 05/05/18 03:57 - ABG Interpretation ABG results: PT/INR, D-dimer PT 13.0 Seconds (9.4-12.1) H 05/05/18 14:47 Consult Discharge Plan - Plan Referrals: Yomaira Rice MD [Primary Care Provider] - (6) AAA (abdominal aortic aneurysm) Qualifiers: Presence of rupture: without rupture Qualified Code(s): I71.4 - Abdominal aortic aneurysm, without rupture
[2018-05-06 18:28] LABS: Basophils # 0.1 K/mcL (0.0-0.2); Basophils % 0.5 %; Eosinophils # 0.4 K/mcL (0.0-0.6); Eosinophils % 3.4 %; Hematocrit 39.6 % (37.5-50.1); Hemoglobin 12.8 g/dL (12.9-16.9); Lymphocytes # 1.5 K/mcL (0.6-4.6); Lymphocytes % 12.4 %; Mean Corpuscular HGB Conc 32.3 g/dL (31.6-35.5); Mean Corpuscular Volume 92.7 fL (83.0-100.0); Mean Platelet Volume 8.5 fL (9.4-12.4); Monocytes % 8.2 %; Neutrophils # 8.7 K/mcL (1.6-8.9); Platelet Count 370 K/mcL (140-400); Red Blood Count 4.27 M/mcL (4.19-5.50); Red Cell Distribution Width 12.6 % (11.5-14.5); Segmented Neutrophils % 74.5 %
[2018-05-06 19:03] LABS: INR 1.1
[2018-05-06] MEDS ORDERED: Niacin (24 HR) 500 MG TAB.ER.24H PO SCH (21:00)
[2018-05-07] MEDS: *HR* OxyCODONE/APAP 5/325 TABLET PO PRN (02:36)
[2018-05-07 05:52] LABS: Basophils # 0.1 K/mcL (0.0-0.2); Basophils % 0.8 %; Eosinophils # 0.4 K/mcL (0.0-0.6); Eosinophils % 4.4 %; Hematocrit 40.6 % (37.5-50.1); Immature Granulocytes % 1.4 % (0-4); Lymphocytes # 1.6 K/mcL (0.6-4.6); Lymphocytes % 19.7 %; Mean Corpuscular Volume 93.5 fL (83.0-100.0); Mean Platelet Volume 8.5 fL (9.4-12.4); Monocytes # 0.7 K/mcL (0.0-1.3); Monocytes % 8.3 %; Neutrophils # 5.4 K/mcL (1.6-8.9); Platelet Count 374 K/mcL (140-400); Red Blood Count 4.34 M/mcL (4.19-5.50); Red Cell Distribution Width 12.7 % (11.5-14.5); Segmented Neutrophils % 65.4 %
[2018-05-07 05:57] LABS: INR 1.1; Prothrombin Time 12.6 Seconds (9.4-12.1)
--- NOTE | 2018-05-07 08:06 | Urology Progress Note ---
<Bria Higginbotham N - Last Filed: 05/07/18 08:04> Date of Encounter: 05/07/18 Time of Encounter: 08:04 - Assessment and Plan (1) Hematuria Current Visit: Yes Status: Acute Assessment and plan: Patient is an 83-year-old male who presents with a history of gross hematuria following urinary tract infection and fall. Patient is status post TURP procedure with Dr. Bobo on 04/19/18. Urine has remained clear off CBI. Urine culture from 05/04/2018 is negative. We will plan to discontinue Chow catheter per patient request. I counseled the patient on activity restriction, hydration, and explained if bleeding returns, he may have to undergo catheter replacement. Patient verbalized understanding and will follow-up with Dr. Bobo as an outpatient. Qualifiers: Hematuria type: gross Qualified Code(s): R31.0 - Gross hematuria (2) S/P TURP (status post transurethral resection of prostate) Current Visit: Yes Status: Acute Progress Note Narrative: Patient seen and examined sitting upright in bed rest. Patient states he is unable to pass a bowel movement with indwelling Chow in place. Patient started Colace yesterday. Urine has remained clear off CBI. Patient is requesting discontinuation of Chow catheter and is inquiring about discharge. Objective Initial Vital Signs Temp Pulse Resp BP Pulse Ox 98.0 F 63 15 153/78 97 05/04/18 10:13 05/04/18 10:13 05/04/18 10:13 05/04/18 10:13 05/04/18 10:13 - General physical appearance Present: well developed, no distress, no pain - Respiratory Present: normal expansion, normal respiratory effort - Abdomen Present: soft, non tender - Genitourinary Urine Appearance: Present: Clear. Absent: Sediment - Integumentary Present: no rash, no abnormal pigmentation - Musculoskeletal Present: normal posture - Psychiatric Present: oriented to time, oriented to person, oriented to place, speech is normal, memory intact - Labs 05/07/18 05:29 05/05/18 03:57 Consult Discharge Plan - Plan Referrals: Yomaira Rice MD [Primary Care Provider] - <Wing Olmstead W - Last Filed: 05/07/18 13:47> Date of Encounter: 05/07/18 - Assessment and Plan (1) Hematuria Current Visit: Yes Status: Acute Assessment and plan: Patient seen and examined independently. Agree with findings and plan of DAYSI Higginbotham Qualifiers: Hematuria type: gross Qualified Code(s): R31.0 - Gross hematuria Objective Initial Vital Signs Temp Pulse Resp BP Pulse Ox 98.0 F 63 15 153/78 97 05/04/18 10:13 05/04/18 10:13 05/04/18 10:13 05/04/18 10:13 05/04/18 10:13 - Labs 05/07/18 05:29 05/05/18 03:57
[2018-05-07] MEDS: Cyanocobalamin (B-12) 1,000 MCG TABLET PO SCH (09:59)
[2018-05-07] MEDS: Cholecalciferol (D-3) 1,000 UNIT TABLET PO SCH (10:00)
[2018-05-07] MEDS: cefTRIAXone 2,000 MG in Water for inj. (sterile) 20 ML 20 ML IVPB SCH (10:00)
--- NOTE | 2018-05-07 13:27 | Internal Med Progress Note ---
Hospitalist Progress Note - Encounter Date of Encounter: 05/07/18 Time of Encounter: 13:03 - Subjective Interval History: Pt denies fever or chills, N/V or diarrhea. He denies CP or SOB. He states back pain improving. States he fell a few days ago. He prefers to request pain medication as needed. Sitting up in chair as he cannot tolerate laying in bed. Urine clearer and denies urinary frequency, urgency, or dysuria. - Exam Vitals: Temp Pulse Resp BP Pulse Ox 98.0 F 75 18 122/63 96 05/07/18 10:30 05/07/18 10:30 05/07/18 10:30 05/07/18 10:30 05/07/18 10:30 Exam: EXAM: General: Patient is alert, oriented, no acute distress, Head: atraumatic, normocephalic, Eye: normal appearance, PERRL, no scleral icterus, no conjunctival injection ENT: mucous membranes moist, normal external ear exam Neck: normal inspection, trachea midline, full ROM, no carotid bruits Chest: normal inspection, symmetric chest rise Respiratory: Good respiratory effort. Bilateral breath sounds are clear without wheezing, crackles, or rhonchi. Cardiovascular: Regular rate and rhythm. s1 and s2 No clicks, rubs, gallops, or murmors. Abdomen: Bowel sounds present normoactive x-4 quadrants. Abdomen is soft, nondistended. no Epigastric tenderness. No guarding or rebound. No organomegaly noted, obese musculoskeletal: Spontaneously moving all extremities. no edema, no calf tenderness Skin: warm, dry, intact. Neuro: Alert and oriented x4. Sensation light touch intact. Cranial nerves 2- 12 is intact. Not aphasic, rapid hand movements intact, [id number] intact, Psych: Patient's affect is normal catheter draining blood stained urine - Assessment and Plan (1) Bladder outlet obstruction Current Visit: Yes Status: Acute Assessment and Plan: Pt is s/p TURP 2 weeks ago. Chow inserted at [facility] Intake and output was monitored Urology consulted and he had hand clot evacuation done at bedside by urology on night of 05/04/2018. Chow discontinued and pt will follow up out pt with urology. (2) Complicated urinary tract infection Current Visit: Yes Status: Acute Assessment and Plan: Urine cultures from 10/31 resulted 05/01/2018 grre Proteus blas sensitive Started on ceftriaxone. Pt prescribed cephalosporin by PCP and is to complete the prescription out pt (3) Hematuria Current Visit: Yes Status: Acute Assessment and Plan: Pt states he is not on Coumadin and can't even tolerate ASA due to nose bleeds. On saw palmchristopher at home was told risks associated with medication CBI initiated and urine more clear Avoid anticoagulations, antiplatelets or NSAIDs or now. Cr 0.76 05/05/2018 Type and screened on admission. Hgb stable at 13.0 Urology consulted and he had hand clot evacuation done at bedside by urology on night of 05/04/2018. CT abd and pelvis 05/04/2018 CT/CT abd pelvis w iv no oral IMPRESSION: 1. Small amount of hemorrhage is seen within the prostate gland, likely from recent procedure. 2. Right posterior bladder wall diverticulum. There is focal amount of hemorrhage noted within the diverticulum with edema/inflammation. Findings could be postsurgical or related to infection. Neoplastic process cannot be entirely excluded. Correlate with cystoscopy and urinalysis. 3. Infrarenal abdominal aortic aneurysm measuring 3.0 cm. Please see recommendations below. 4. 1.1 cm pancreatic tail cystic lesion. Please see recommendations below. 5. Enlarged prostate gland with findings consistent with bladder outlet obstruction. (4) S/P TURP (status post transurethral resection of prostate) Current Visit: Yes Status: Acute Assessment and Plan: He is status post TURP on 04/19 Urology followed the pt on this admission. (5) Diverticulum of bladder Current Visit: Yes Status: Acute Assessment and Plan: Urology aware CBI initiated CT abdomen and pelvis performed at [facility] on 05/04 1. Small amount of hemorrhage is seen within the prostate gland, likely from recent procedure. 2. Right posterior bladder wall diverticulum. There is focal amount of hemorrhage noted within the diverticulum with edema/inflammation. Findings could be postsurgical or related to infection. Neoplastic process cannot be entirely excluded. Correlate with cystoscopy and urinalysis. 3. Infrarenal abdominal aortic aneurysm measuring 3.0 cm. Please see recommendations below. 4. 1.1 cm pancreatic tail cystic lesion. Please see recommendations below. 5. Enlarged prostate gland with findings consistent with bladder outlet obstruction. (6) AAA (abdominal aortic aneurysm) Current Visit: Yes Status: Acute Assessment and Plan: 3.0 cm AAA Radiology Recommend follow-up every 3 years. (7) Pancreatic lesion Current Visit: Yes Status: Acute Assessment and Plan: Incidentally found on CT abdomen and pelvis As per radiology recommendations:< 2 cm: Single follow-up in 1 yr (MR mason) *Stable: Benign, no further follow-up *Growth: As below based upon size (8) Constipation Current Visit: Yes Status: Acute Assessment and Plan: Colace 100 mg BID and will add Miralax. 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 Terrazas is a 83 year old male with history of type 2 diabetes and recent TURP procedure on 04/19 at [facility] presented to the [facility] emergency department with hematuria. Patient reported that he had a TURP procedure performed on 04/19 and was discharged home with a Chow catheter which was removed 6 days later with the urology team. He was found to have a urinary tract infection and was started on Bactrim which was later changed after urine cultures resulted on 04/27 but he cannot recall the new antibiotic but does report that he felt that prescription the day before admission. He reports that he was doing well until Thursday 2 days before admission he fell after his feet got tangled in his pants and hit his right shoulder and right hip on the floor, subsequently he developed back pain and blood in his urine. At first his urine was blood-tinged however on the day of admission he saw smith blood in his urine along with clots so he decided to go to [facility] emergency department for further evaluation. He cannot recall alleviating or aggravating factors. He does however report that he continued to have frequency and difficulty initiating his urine once he started to notice blood mixed with his urine. While at [facility] ED Chow was inserted and CBI was initiated and urology was consulted and was recommended for him to be transferred to [facility] for further evaluation and management CT abdomen and pelvis performed at [facility] was negative for any retroperitoneal bleeding, full report below Currently he denies fever, chills, chest pain, palpitations, shortness of breath, nausea, vomiting, diarrhea, syncope, loss of consciousness cause, headache, back pain. - Time Spent with Patient Total time spent is greater than 50% in coordination of care (as documented) at patient's floor/unit and/or counseling patient: less than 15 minutes Plan of Care Discussed with: patient Internal Medicine: Result - Labs CBC & Chem 7: 05/07/18 05:29 05/05/18 03:57 Labs: Short CBC 05/06/18 05/07/18 Range/Units 17:56 05:29 WBC 11.7 H 8.3 (4.3-11.1) K/mcL Hgb 12.8 L 13.0 (12.9-16.9) g/dL Hct 39.6 40.6 (37.5-50.1) % Plt Count 370 374 (140-400) K/mcL Neutrophils # 8.7 5.4 (1.6-8.9) K/mcL - ABG Interpretation ABG results: PT/INR, D-dimer PT 12.6 Seconds (9.4-12.1) H 05/07/18 05:29 Consult Discharge Plan - Plan Referrals: Yomaira Rice MD [Primary Care Provider] - (3) Hematuria Qualifiers: Qualified Code(s): R31.0 - Gross hematuria (6) AAA (abdominal aortic aneurysm) Qualifiers: Qualified Code(s): I71.4 - Abdominal aortic aneurysm, without rupture
--- NOTE | 2018-05-07 13:48 | Discharge Summary ---
- NOTES TO OUTPATIENT PROVIDER Notes to Outpatient Provider: PCP in 5 to 7 days. Urology out pt as scheduled. Orders not resulted at time of discharge: Pending orders 05/08/18 04:00 INR/PT [Prothrombin Time INR] [COAG] AM 0400 05/09/18 04:00 INR/PT [Prothrombin Time INR] [COAG] AM 0400 Date of Encounter: 05/07/18 Time of Encounter: 13:05 - Discharge Diagnosis (1) Bladder outlet obstruction Priority: Primary Status: Acute Assessment and Plan: Pt is s/p TURP 2 weeks ago. Chow inserted at [facility] Intake and output was monitored Urology consulted and he had hand clot evacuation done at bedside by urology on night of 05/04/2018. Chow discontinued and pt will follow up out pt with urology. (2) Complicated urinary tract infection Priority: Primary Status: Acute Assessment and Plan: Urine cultures from 04/28 resulted 05/01/2018 grre Proteus blas sensitive Started on ceftriaxone. Pt prescribed cephalosporin by PCP and is to complete the prescription out pt (3) Hematuria Priority: Primary Status: Acute Assessment and Plan: Pt states he is not on Coumadin and can't even tolerate ASA due to nose bleeds. On saw palmetto at home was told risks associated with medication CBI initiated and urine more clear Avoid anticoagulations, antiplatelets or NSAIDs or now. Cr 0.76 05/05/2018 Type and screened on admission. Hgb stable at 13.0 Urology consulted and he had hand clot evacuation done at bedside by urology on night of 05/04/2018. CT abd and pelvis 05/04/2018 CT/CT abd pelvis w iv no oral IMPRESSION: 1. Small amount of hemorrhage is seen within the prostate gland, likely from recent procedure. 2. Right posterior bladder wall diverticulum. There is focal amount of hemorrhage noted within the diverticulum with edema/inflammation. Findings could be postsurgical or related to infection. Neoplastic process cannot be entirely excluded. Correlate with cystoscopy and urinalysis. 3. Infrarenal abdominal aortic aneurysm measuring 3.0 cm. Please see recommendations below. 4. 1.1 cm pancreatic tail cystic lesion. Please see recommendations below. 5. Enlarged prostate gland with findings consistent with bladder outlet obstruction. Qualifiers: Hematuria type: gross Qualified Code(s): R31.0 - Gross hematuria (4) S/P TURP (status post transurethral resection of prostate) Priority: Secondary Status: Acute Assessment and Plan: He is status post TURP on 04/19 Urology followed the pt on this admission. (5) Diverticulum of bladder Priority: Secondary Status: Acute Assessment and Plan: Urology aware CBI initiated CT abdomen and pelvis performed at [place] on 05/04 1. Small amount of hemorrhage is seen within the prostate gland, likely from recent procedure. 2. Right posterior bladder wall diverticulum. There is focal amount of hemorrhage noted within the diverticulum with edema/inflammation. Findings could be postsurgical or related to infection. Neoplastic process cannot be entirely excluded. Correlate with cystoscopy and urinalysis. 3. Infrarenal abdominal aortic aneurysm measuring 3.0 cm. Please see recommendations below. 4. 1.1 cm pancreatic tail cystic lesion. Please see recommendations below. 5. Enlarged prostate gland with findings consistent with bladder outlet obstruction. (6) AAA (abdominal aortic aneurysm) Priority: Secondary Status: Acute Assessment and Plan: 3.0 cm AAA Radiology Recommend follow-up every 3 years. Qualifiers: Presence of rupture: without rupture Qualified Code(s): I71.4 - Abdominal aortic aneurysm, without rupture (7) Pancreatic lesion Priority: Secondary Status: Acute Assessment and Plan: Incidentally found on CT abdomen and pelvis As per radiology recommendations:< 2 cm: Single follow-up in 1 yr (MR mason) *Stable: Benign, no further follow-up *Growth: As below based upon size (8) Constipation Priority: Secondary Status: Acute Assessment and Plan: Colace 100 mg BID and will add Miralax. 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 Terrazas is a 83 year old male with history of type 2 diabetes and recent TURP procedure on 04/19 at [facility] presented to the [place] emergency department with hematuria. Patient reported that he had a TURP procedure performed on 04/19 and was discharged home with a Chow catheter which was removed 6 days later with the urology team. He was found to have a urinary tract infection and was started on Bactrim which was later changed after urine cultures resulted on 04/27 but he cannot recall the new antibiotic but does report that he felt that prescription the day before admission. He reports that he was doing well until Thursday 2 days before admission he fell after his feet got tangled in his pants and hit his right shoulder and right hip on the floor, subsequently he developed back pain and blood in his urine. At first his urine was blood-tinged however on the day of admission he saw smith blood in his urine along with clots so he decided to go to [place] emergency department for further evaluation. He cannot recall alleviating or aggravating factors. He does however report that he continued to have frequency and difficulty initiating his urine once he started to notice blood mixed with his urine. While at [place] ED Chow was inserted and CBI was initiated and urology was consulted and was recommended for him to be transferred to [facility] for further evaluation and management CT abdomen and pelvis performed at [facility] was negative for any retroperitoneal bleeding, full report below Currently he denies fever, chills, chest pain, palpitations, shortness of breath, nausea, vomiting, diarrhea, syncope, loss of consciousness cause, headache, back pain. Discharge discussed with: patient - Time Spent with Patient Total time spent providing and/or coordinating discharge services: Greater than 30 minutes - Discharge Medications Home Medications: Calcium Carbonate/Vitamin D3 [Calcium 500 + Vit D Caplet] 1 tab PO DAILY 04/19/18 [History] Cholecalciferol (D-3) [Vitamin D] 1,000 unit PO DAILY 04/19/18 [History] Cyanocobalamin (Vitamin B-12) [Vitamin B-12] 1,000 mcg PO DAILY 04/19/18 [History] Ibuprofen [Motrin Ib] 200 mg PO Q6H PRN 04/19/18 [History] Metformin HCl [Metformin HCl ER] 2,000 mg PO QPM 04/19/18 [History] Niacin 1,000 mg PO DAILY 04/19/18 [History] Saw Jumping Branch Fruit [Saw Jumping Branch] 450 mg PO BID 04/19/18 [History] Allergies/Adverse Reactions: Allergy/AdvReac Type Severity Reaction Status Date / Time ciprofloxacin [From Cipro] Allergy Rash Verified 04/19/18 06:34 aspirin AdvReac Nose Bleed Verified 04/19/18 06:34 Vyhmbrb-Mal-Jhv Reductase AdvReac Muscle Pain Verified 04/19/18 06:34 Inhibitor [Statins] Date of admission: 05/06/18 14:11 Primary care physician: Yomaira Rice MD Consults: 05/04/18 08:33 Consult to Urology [CONS] Stat Consulting Provider: Urology Diana Reason for Consult: hematuria, S/p turp on 04/19, bladder diverticum- bleeding Call Completed: Yes Discharging clinician: Daly Rivas Anticipated date of discharge: 05/07/18 - Constitutional Vitals: Temp Pulse Resp BP Pulse Ox 98.0 F 75 18 122/63 96 05/07/18 10:30 05/07/18 10:30 05/07/18 10:30 05/07/18 10:30 05/07/18 10:30 Exam: EXAM: General: Patient is alert, oriented, no acute distress, Head: atraumatic, normocephalic, Eye: normal appearance, PERRL, no scleral icterus, no conjunctival injection ENT: mucous membranes moist, normal external ear exam Neck: normal inspection, trachea midline, full ROM, no carotid bruits Chest: normal inspection, symmetric chest rise Respiratory: Good respiratory effort. Bilateral breath sounds are clear without wheezing, crackles, or rhonchi. Cardiovascular: Regular rate and rhythm. s1 and s2 No clicks, rubs, gallops, or murmors. Abdomen: Bowel sounds present normoactive x-4 quadrants. Abdomen is soft, nondistended. no Epigastric tenderness. No guarding or rebound. No organomegaly noted, obese musculoskeletal: Spontaneously moving all extremities. no edema, no calf tenderness Skin: warm, dry, intact. Neuro: Alert and oriented x4. Sensation light touch intact. Cranial nerves 2- 12 is intact. Not aphasic, rapid hand movements intact, [id number] intact, Psych: Patient's affect is normal catheter draining blood stained urine - Patient Status Disposition: Home, Self-Care Condition: Good Overall status at discharge: patient is back to baseline - Discharge Instructions Follow Up With: Yomaira Rice MD [Primary Care Provider] - - Diet and Activity Activity: increase activity as tolerated Diet: advance to your usual diet
[2018-05-07 14:46] VITALS: BP 145/82
[2018-05-07] MEDS ORDERED: Warfarin perPT PO PRN (18:00)
[2018-05-07] MEDS ORDERED: *HR* Warfarin 5 MG TABLET PO SCH (18:00)
== END 2018-05-07 18:03 | disposition home or self-care (01) | DRG 699 ==
LOC: 2ANU → 3ANU 10:11
PROVIDERS: ADMIT Family Medicine; ATTEND Family Medicine